=== PATIENT | female | born 1965 | race Caucasian/White ===

== ENCOUNTER → 2021-04-08 | Outpatient (CLI) | payer BC ==
--- NOTE | 2021-04-08 12:59 | CTL ---
EXAMINATION TYPE: CT Low Dose Lung DATE OF EXAM ORDERED: 04/08/2021 HISTORY: Long-term tobacco use. Lung cancer screening CT DLP: 144.[address] CTDI: 3.8 mGy Automated exposure control for dose reduction was used. SCREENING VISIT: Baseline COMPARISON: None TECHNIQUE: Low dose computed tomography scan was performed through the chest at 1 mm thick sections a nd reconstructed images in multiple planes at 1 mm and [address] DIAGNOSTIC QUALITY: Satisfactory FINDINGS: LUNG NODULES: Present, detailed below: Tiny 2 to 3 mm nodule right midlung abuts the pleura axial image 111. No greater than 5 mm noncalcified nodules bilaterally. LUNGS: COPD: Severity: None Fibrosis: Severity: None Lymph nodes: No greater than 1 cm. Other findings: Elevated inferior aspect right hemidiaphragm. RIGHT PLEURAL SPACE: Effusion: None Calcification: None Thickening: None Pneumothorax: None LEFT PLEURAL SPACE: Effusion: None Calcification: None Thickening: None Pneumothorax: None HEART: Heart Size: Normal Coronary calcification: None Pericardial effusion: Trace OTHER FINDINGS: Upper abdomen: Intraluminal 1.2 cm gallstone. Bony thorax: Slight scoliotic curvature. Mild Multilevel spurring. Supraclavicular region: No suspicious abnormality. Other: None. IMPRESSION: No significant nodules. CT LUNG RAD AND CT CHEST RECOMMENDATION: Lung-Rad 2 Benign Appearance or Behavior: Continue annual sc reening with LDCT in 12 months. S Modifier (other clinically significant findings): None
== END ==
LOC: RADCTMAIN 12:00
PROVIDERS: ATTEND Family Medicine
DX: Z12.2 Encounter for screening for malignant neoplasm of respiratory organs (principal); F17.290 Nicotine dependence, other tobacco product, uncomplicated
CPT/HCPCS: 71271

== ENCOUNTER → 2022-09-21 | Outpatient (CLI) | payer OTHER ==
[2022-09-21 12:36] VITALS: BP 115/80; PULSE 82; RESP 16; TEMP 98.2
--- NOTE | 2022-09-21 13:46 | P.HPOB ---
History of Present Illness H&P Date: 09/21/22 Chief Complaint: The patient is here for her routine gynecologic exam. This is a 57-year-old with an LMP of 2013. The patient is here to establish with this office. She was last seen here in 2013. She has occasional hot flashes at night, but this is not very bothersome. She denies any postmenopausal bleeding. She was diagnosed with left breast cancer in October 2021 and has been seen through [facility] for this. She is status post bilateral mastectomies, chemotherapy, and radiation therapy. She is also complaining to be on anastrozole for 10 years. Review of Systems She is getting about 30 pounds after she was on chemotherapy. She states prior to that she lost 100 pounds between 2015 and 2021. She is again trying to lose the weight with diet and exercise. She denies respiratory, cardiac, or GI problems. Past Medical History Past Medical History: Cancer, GERD/Reflux Additional Past Medical History / Comment(s): BREAST CANCER 2021 L BREAST, CHEMO 2021, RADIATION 2021-JULY 21 2022. Seasonal ALLERGIES. Past [employer] Hx: No history of STDs. History of Any Multi-Drug Resistant Organisms: None Reported Past Surgical History: Breast Surgery, Cholecystectomy, Tubal Ligation Additional Past Surgical History / Comment(s): KARMA MASTECOMY WITH RECONSTRUCTION(silicone implants) 2021, L TUBE/OVARY REMOVED 2013(dermoid). Right knee surgery. Past Anesthesia/Blood Transfusion Reactions: No Reported Reaction Past Psychological History: No Psychological Hx Reported Smoking Status: Former smoker Past Alcohol Use History: Occasional (2 per week.) Additional Past Alcohol Use History / Comment(s): Quit smoking in 2007. Past Drug Use History: None Reported Additional History: She has been since 1988 and works for an [employer] remotely. - Past Family History Mother Family Medical History: Congestive Heart Failure (CHF) Father Family Medical History: Diabetes Mellitus Brother(s) Family Medical History: Diabetes Mellitus Medications and Allergies Home Medications Medication Instructions Recorded Confirmed Type Anastrozole 1 mg PO DAILY 09/21/22 09/21/22 History Calcium Carbonate/Vitamin D3 1 cap PO DAILY 09/21/22 09/21/22 History [Calcium 600-Vit D3 62.5 Mcg (2,500 Iu)] Celecoxib [CeleBREX] 100 mg PO DAILY 09/21/22 09/21/22 History Allergies Allergy/AdvReac Type Severity Reaction Status Date / Time No Known Allergies Allergy Unverified 09/21/22 12:28 Exam Vital Signs Temp Pulse Resp BP Pulse Ox 09/21/22 12:31 98.2 F 82 16 115/80 99 Intake and Output 09/20/22 09/21/22 09/21/22 22:59 06:59 14:59 Other: Weight 92.533 kg Height 5 feet 8 inches, weight 204 pounds, BMI 31.0. This is a well-developed well-nourished white female who is alert and oriented times 3 in no acute distress. HEENT: Within normal limits. NECK: Supple without mass or thyromegaly. CHEST AND LUNGS: Clear to auscultation. HEART: Regular rate and rhythm. BREASTS: Are without mass or discharge. Breasts are consistent with bilateral mastectomies with implants. AXILLARY EXAM: Negative for adenopathy. BACK: Negative for CVA tenderness. ABDOMEN: Soft, nontender, without palpable masses. PELVIC EXAM: Normal external genitalia with mild atrophy. Cervix and vagina appear normal with mild atrophy. There is no unusual discharge. There is no evidence of prolapse. The uterus is midposition, nongravid size and nontender. There are no palpable adnexal masses or tenderness. RECTAL EXAM: Rectovaginal exam is negative for mass or tenderness and is negative for occult blood. EXTREMITIES: Nontender. IMPRESSION: 1. 57-year-old menopausal female status post LSO for a benign reason, with normal gynecologic exam. 2. History of left breast cancer status post bilateral mastectomies, chemotherapy, and radiation therapy. PLAN: 1. Pap smear cotest was performed. 2. Self breast awareness was discussed with the patient. We have also discussed symptoms associated with inflammatory breast cancer. 3. Mammograms have been discontinued. She will continue to follow up with her oncologist out of [facility] for her breast cancer. 4. Osteoporosis prevention was discussed. I have stressed the importance of adequate calcium, vitamin D and regular exercise. Recommended amounts of calcium and vitamin D were also discussed. She states she has had a bone density test done that was normal through her oncologist. She will continue to do bone density testing as recommended by her oncologist. 5. She was advised to return in one year for her annual well woman exam.
== END ==
LOC: WWCWWP 11:50
PROVIDERS: ATTEND Obstetrics & Gynecology
DX: Z01.419 Encounter for gynecological examination (general) (routine) without abnormal findings (principal); Z85.3 Personal history of malignant neoplasm of breast; K21.9 Gastro-esophageal reflux disease without esophagitis; R23.2 Flushing; Z79.1 Long term (current) use of non-steroidal anti-inflammatories (NSAID); Z83.3 Family history of diabetes mellitus; Z87.891 Personal history of nicotine dependence; Z90.13 Acquired absence of bilateral breasts and nipples; Z90.49 Acquired absence of other specified parts of digestive tract; Z90.721 Acquired absence of ovaries, unilateral

== ENCOUNTER → 2022-09-21 | Outpatient (CLI) | payer OTHER ==
--- NOTE | 2022-09-21 14:27 | CTL ---
EXAMINATION TYPE: CT Low Dose Lung DATE OF EXAM ORDERED: 09/21/2022 HISTORY: 57-year-old female personal history of tobacco use, 30 pack-year history. Lung cancer screen ing CT DLP: 136.[address] CTDI: 3.7 mGy Automated exposure control for dose reduction was used. SCREENING VISIT: Follow-up after 1.5 years COMPARISON: 04/08/2021 TECHNIQUE: Low dose computed tomography scan was performed through the chest coronal and sagittal rec onstructions. CT DIAGNOSTIC QUALITY: Satisfactory FINDINGS: Interval placement of bilateral breast implants. Heart normal size without pericardial effusion. Aorta normal caliber with conventional arch vessel branching anatomy. No thoracic lymphadenopathy by CT size criteria. Unchanged 3 mm pulmonary nodule lateral right midlung compatible with a benign etiology. No consolida tion or pleural effusion. Visualized upper abdomen shows a 1.6 cm gallstone. No osseous destructive process. IMPRESSION: 1. LungRADS 2, benign. No new or enlarging pulmonary nodules. Recommend smoking cessation. 2. Incidental: A 1.[address] LUNG RAD AND CT CHEST RECOMMENDATION: Lung-Rad 2 Benign Appearance or Behavior: Continue annual sc reening with LDCT in 12 months. S Modifier (other clinically significant findings): None
== END | disposition home or self-care (01) ==
LOC: RADCTMAIN 11:52
PROVIDERS: ATTEND Family Medicine
DX: Z12.2 Encounter for screening for malignant neoplasm of respiratory organs (principal); K80.20 Calculus of gallbladder without cholecystitis without obstruction; Z87.891 Personal history of nicotine dependence
CPT/HCPCS: 71271